=== PATIENT | female | born 1980 | race African-American/Black ===

== ENCOUNTER 2018-07-19 09:56 | Emergency (ER) | payer SELFPAY ==
[2018-07-19 10:01] VITALS: BP 115/80
--- NOTE | 2018-07-19 10:26 | ER Document Report ---
HPI - HPI Time Seen by Provider: 07/19/18 10:14 Pain Level: 5 Notes: Patient is a 37-year-old female with no significant past medical history presents the [facility] department complaining of right thumb pain that extends from the tip of her thumb down towards her wrist over the last week. Patient states that she was putting her child in a car seat when she heard a pop in her thumb. Patient states that she has had pain since then without any obvious bruising or swelling. Patient states that she is still able to flex and extend her thumb without difficulties otherwise. Denies drug allergies. No other concerns or complaints. Denies any headache, fever, neck pain, URI, sore throat, chest pain, palpitations, syncope, cough, shortness of breath, wheeze, dyspnea, abdominal pain, nausea/vomiting/diarrhea, urinary retention, dysuria, hematuria, numbness/tingling, muscle paralysis/weakness, or rash. - ROS Systems Reviewed and Negative: Yes All other systems reviewed and negative - REPRODUCTIVE Reproductive: DENIES: : Past Medical History - Social History Smoking Status: Never Smoker Family History: None Past Surgical History: Reports: Hx Cholecystectomy - Immunizations Immunizations up to date: Yes Hx Diphtheria, Pertussis, Tetanus Vaccination: Yes Vertical Provider Document - CONSTITUTIONAL Agree With Documented VS: Yes Notes: PHYSICAL EXAMINATION: GENERAL: Well-appearing, well-nourished and in no acute distress. LUNGS: Breath sounds clear to auscultation bilaterally and equal. No wheezes rales or rhonchi. HEART: Regular rate and rhythm without murmurs, rubs, gallops. Musculoskeletal: Rt thumb: No ecchymosis, erythema, swelling, warmth, or deformity noted. FROM to passive/active. Strength 5+/5. + mild tenderness with issa. Gamekeeper grossly negative. No scaphoid tenderness. Extremities: No cyanosis, clubbing, or edema b/l. Peripheral pulses 2+. Capillary refill less than 3 seconds. NEUROLOGICAL: Normal speech, normal gait. Normal sensory, motor exams PSYCH: Normal mood, normal affect. SKIN: Warm, Dry, normal turgor, no rashes or lesions noted. - INFECTION CONTROL TRAVEL OUTSIDE OF THE [place] IN LAST 30 DAYS: No Course - Re-evaluation Re-evalutation: 07/19/18 10:40 Patient is an afebrile, well-hydrated, 37-year-old female who presents to the ED with Rt thumb pain which I suspect to be a sprain versus strain. Vitals are acceptable without any significant tachycardia, tachypnea, or hypoxia. PE is otherwise unremarkable for any neurovascular compromise, obvious tendon/ligament rupture, obvious fracture/dislocation, septic joint. Reviewed imaging with the patient who declined at this time. Thumb spica provided today. Patient is nontoxic-appearing. No other labs or imaging warranted at this time based on H&P. Rx for voltaren. Conservative measures otherwise for symptoms. Recheck with your PCM in 3-5 days. Consider consult orthopedics. Return to the ED with any worsening/concerning symptoms otherwise as reviewed in discharge. Patient is in agreement. - Vital Signs Vital signs: Temp Pulse Resp BP Pulse Ox 98.3 F 81 16 115/80 100 07/19/18 10:00 07/19/18 10:00 07/19/18 10:00 07/19/18 10:00 07/19/18 10:00 Procedures - Immobilization Right Thumb Time completed: 10:35 Pre-Proc Neuro Vasc Exam: Normal Immobilizer type: Thumb spica Performed by: PCT Post-Proc Neuro Vasc Exam: Normal, Unchanged from pre-exam Discharge - Discharge Clinical Impression: Pain of right thumb Condition: Stable Disposition: HOME, SELF-CARE Additional Instructions: Rest, Ice, Compression, Elevation Use splint as directed Tylenol/ibuprofen as needed F/u with your PCP in 3-5 days for a recheck Call orthopedics tomorrow to schedule an appointment for further evaluation and management Return to the ED with any worsening symptoms and/or development of fever, headache, chest pain, palpitations, syncope, shortness of breath, trouble breathing, abdominal pain, n/v/d, muscle weakness/paralysis, numbness/tingling, swelling, redness, or other worsening symptoms that are concerning to you. Prescriptions: Diclofenac Sodium [Voltaren] 4 gm TP QID PRN #100 gel..gm. PRN Reason: Referrals: [facility] [Provider Group] - Follow up as needed
== END 2018-07-19 10:45 | disposition home or self-care (01) ==
LOC: ER 09:56
PROC: 2W3GX1Z Immobilization of Right Thumb using Splint (ICD-10-PCS; principal; 2018-07-19)
DX: M79.644 Pain in right finger(s) (principal); M25.531 Pain in right wrist
CPT/HCPCS: 99283

== ENCOUNTER 2018-07-28 08:11 | Emergency (ER) | payer SELFPAY ==
[2018-07-28] MEDS ORDERED: ACETAMINOPHEN 325 MG TABLET PO ONE (09:13)
[2018-07-28] MEDS ORDERED: DIPH/PERTUSS(ACELL)/TETANUS VAC/PF 0.5 ML SYR (>=10YO) IM ONE (09:42)
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
[2018-07-28 10:45] VITALS: BP 123/84
--- NOTE | 2018-07-28 11:10 | RADIOLOGY REPORT (SQ) ---
EXAM DESCRIPTION: TOE LEFT COMPLETED DATE/TIME: 07/28/2018 9:49 am REASON FOR STUDY: door struck L great toe COMPARISON: None. NUMBER OF VIEWS: Three views. TECHNIQUE: AP, lateral, and oblique images acquired of the left first toe. LIMITATIONS: None. FINDINGS: MINERALIZATION: Normal. BONES: No acute fracture or dislocation. No worrisome bone lesions. JOINTS: No effusions. SOFT TISSUES: Laceration left great toe at the distal tip of the toe nail, without underlying fractur e or radiopaque foreign body OTHER: No other significant finding. IMPRESSION: Laceration left great toe at the distal tip of the toe nail, without underlying fracture or radiopaque foreign body COMMENT: SITE OF TRAUMA/COMPLAINT MARKED/STAMP COMPLETED: Yes TECHNICAL DOCUMENTATION: JOB ID: [id number] [employer]- All Rights Reserved Reading location - IP/workstation name: [email or web address]
== END 2018-07-28 10:45 | disposition home or self-care (01) ==
LOC: ER 08:11
DX: S91.209A Unspecified open wound of unspecified toe(s) with damage to nail, initial encounter (principal); W20.8XXA Other cause of strike by thrown, projected or falling object, initial encounter; Z23 Encounter for immunization; Z90.49 Acquired absence of other specified parts of digestive tract
CPT/HCPCS: 90471; 90715; 99283